=== PATIENT | male | born 1960 | race Caucasian/White ===

== ENCOUNTER 2020-11-28 22:00 | Emergency (ER) | payer SELFPAY ==
[~2020-11-28] VITALS: Ht 170.2 cm; Wt 72.6 kg
[2020-11-28] MEDS ORDERED: LISINOPRIL10 MG PO (22:15)
== END 2020-11-28 22:48 | disposition home or self-care (01) ==
LOC: ED 22:00
DX: J20.9 Acute bronchitis, unspecified (principal); I10 Essential (primary) hypertension; F17.200 Nicotine dependence, unspecified, uncomplicated; Z79.899 Other long term (current) drug therapy
CPT/HCPCS: 71046; 99283-25